=== PATIENT | female | born 1970 | race Caucasian/White ===

== ENCOUNTER 2020-09-29 17:22 | Outpatient (CLI) | payer OTHER, SELFPAY ==
--- NOTE | ~2020-09-29 | CT_ITS ---
EXAMINATION: CT abdomen pelvis wo con DATE: 09/29/2020 18:22 INDICATION: Bladder and flank pain TECHNIQUE: Computed tomography (CT) of the abdomen and pelvis was performed without intravenous contr ast. The dose-length product was 762.48 mGy-cm. Automated exposure control and iterative reconstructi on technique were employed. COMPARISON: None. FINDINGS: Lung bases unremarkable. Heart size normal. No significant pleural or pericardial effusion. Surgical changes consistent with gastric bypass surgery. The liver, spleen, pancreas, adrenal glands and kidneys are unremarkable. No hydronephrosis. No urete ral stones are identified. Bladder is unremarkable. Nonobstructive bowel gas pattern. No evidence for appendicitis or diverticulitis. No lymphadenopathy. No significant vascular abnormality. There is fo mohini scarring right anterior abdominal wall, likely previous laparoscopic port site. No free air or fr ee fluid. IMPRESSION: 1. No acute abdominal abnormality. Reviewed, dictated and finalized at location A.
== END 2020-09-29 17:23 | disposition home or self-care (01) ==
PROVIDERS: PCP Nurse Practitioner Family; Visit Provider Nurse Practitioner Family
DX: R10.9 Unspecified abdominal pain (principal)
CPT/HCPCS: 74176